=== PATIENT | female | born 1940 | race Caucasian/White ===

== ENCOUNTER 2017-04-08 10:02 | Emergency (ER) | payer MEDICARE, BC ==
[2017-04-08 10:23] VITALS: BP 147/86
--- NOTE | 2017-04-08 15:51 | UC ---
Jackson Terrell Angela, scribed for Carlos Honeycutt MD on 04/08/17 at 1130 . Skin Complaint HPI - HPI Summary HPI Summary: This pt is a 76 y/o female presenting to [facility] c/o swollen left eyelid and rash on forehead and back x2 days. Pt reports the rash is pruritic and has blisters on bilateral hand. Pt notes that she was sitting in the park eating lunch prior to the onset of her symptoms. Pt denies eye discharge, rhinorrhea, new make up, new lotions, new soap. Pt is anticoagulated on Xarelto. - History of Current Complaint Chief Complaint: UCSkin Time Seen by Provider: 04/08/17 11:14 Stated Complaint: RASH Hx Obtained From: Patient Onset/Duration: Sudden Onset Skin Exposure Onset/Duration: Days Ago Location: Other - Swollen left eye, rashe across forehead. Character: Pruritus Aggravating: Nothing Alleviating: Nothing Associated Signs & Symptoms: Positive: Rash. Negative: Nausea, Vomiting, Numbness, Thirst, Diaphoresis, Weakness, Fever, Chills, Cough, Wheezing, Chest Pain, Throat Tightening, Bruising, Tenderness, Red Streaks - Allergy/Home Medications Allergies/Adverse Reactions: Allergies Allergy/AdvReac Type Severity Reaction Status Date / Time ADHESIVE USED ON TEST NODES Allergy ITCHY Uncoded 04/08/17 10:15 MILLICENT AREA DAIRY PRODUCTS Allergy RASPY Uncoded 04/08/17 10:15 VOICE, PHLEGMY, SEASONAL ALLERGY Allergy Sneezing Uncoded 04/08/17 10:15 Review of Systems Constitutional: Negative Skin: Rash Eyes: Other - left eye swelling. ENT: Negative Respiratory: Negative Cardiovascular: Negative Gastrointestinal: Negative Genitourinary: Negative Motor: Negative Neurovascular: Negative Musculoskeletal: Negative Psychological: Negative All Other Systems Reviewed And Are Negative: Yes PMH/Surg Hx/FS Hx/Imm Hx - Surgical History Surgical History: Yes Surgery Procedure, Year, and Place: arthroscopy to bilat knees, hysterectomy, rt oopherectomy, basal cell carcinoma on nose - Family History Known Family History: Positive: None - Social History Alcohol Use: Occasionally Alcohol Amount: GLASS OF WINE "A FEW TIMES A WEEK" Substance Use Type: None Smoking Status (MU): Never Smoked Tobacco Have You Smoked in the Last Year: No - Immunization History Most Recent Tetanus Shot: less then 10 yrs Physical Exam Triage Information Reviewed: Yes Vital Signs: Initial Vital Signs Temp 97.9 F 04/08/17 10:17 Pulse 72 04/08/17 10:17 Resp 16 04/08/17 10:17 BP 147/86 04/08/17 10:17 Pulse Ox 98 04/08/17 10:17 Vital Signs Reviewed: Yes - Additional Comments The patient is well-nourished in no acute distress and in no acute pain. The skin is warm and dry and skin color reflects adequate perfusion. There is a red macular laterally to her left eye and left eyelid, spread across her forehead to the right side. Isolated vesicle on dorsal aspect of hand, most likely consistent with contact dermatitis. HEENT: The head is normocephalic and atraumatic. The pupils are equal and reactive. The conjunctivae are clear and without drainage. There is swelling of left upper eyelid. The right eyelid is not swollen. Nares are patent and without drainage. Neck is supple with full range of motion and non-tender. No cervical adenopathy. Respiratory: Chest is non-tender. Lungs are clear to auscultation and breath sounds are symmetrical and equal. Cardiovascular: Hear is regular rate and rhythm. There is no murmur or rub auscultated. There is no peripheral edema and pulses are symmetrical and equal. Musculoskeletal: There is no back pain noted. Extremities are non-tender with full range of motion. There is good capillary refill. . Neurological: Patient is alert and oriented to person, place and time. The patient has symmetrical motor strength in all four extremities. Psychiatric: The patient has an appropriate affect and does not exhibit any anxiety or depression. Course/Dx - Course Course Of Treatment: Pt will be discharged with prednisone and benadryl. - Differential Diagnoses - Skin Complaint Differential Diagnoses: Contact Dermatitis, Poison Rasheeda - Diagnoses Provider Diagnoses: Contact Dermatitis. Elevated BP Discharge - Discharge Plan Condition: Stable Disposition: HOME Prescriptions: diPHENhydraMINE PO* [Benadryl PO 50 MG CAP*] 50 mg PO Q6H PRN #30 cap PRN Reason: Itching predniSONE TAB* [Deltasone TAB*] 10 mg PO DAILY #41 tab Patient Education Materials: Contact Dermatitis (ED) Referrals: Jose Sanchez MD [Primary Care Provider] - Additional Instructions: Your blood pressure was elevated at this visit. Please follow up with your primary care provider for your blood pressure reading and to assure your symptoms are improving. The documentation as recorded by the Jackson ibrahim Angela accurately reflects the service I personally performed and the decisions made by me, Carlos Honeycutt MD.
== END 2017-04-08 11:39 | disposition home or self-care (01) ==
LOC: UCEAST 10:02
DX: L25.9 Unspecified contact dermatitis, unspecified cause (principal); R03.0 Elevated blood-pressure reading, without diagnosis of hypertension; Z85.828 Personal history of other malignant neoplasm of skin; Z79.01 Long term (current) use of anticoagulants
CPT/HCPCS: 99212; G0463

== ENCOUNTER 2017-09-03 06:02 | Inpatient (IN) | payer MEDICARE, BC ==
--- NOTE | 2017-08-27 20:12 | HP ---
PREOPERATIVE HISTORY AND PHYSICAL: DATE OF ADMISSION/SURGERY: 09/03/17 ATTENDING SURGEON: Abraham Todd MD * (DICTATED BY JENY SEVERINO) PROCEDURE: Left total shoulder replacement. CHIEF COMPLAINT: Left shoulder pain. HISTORY OF PRESENT ILLNESS: Jose is a 77-year-old female who presents to the clinic for left shoulder pain due to a rotator cuff repair. She has failed conservative measures and therefore, agreed to undergo a left total shoulder replacement with Dr. Todd on 09/03/17. PAST MEDICAL HISTORY: Arthritis, peptic ulcer disease, hypothyroidism, paroxysmal AFib, and hyperlipidemia. PAST SURGICAL HISTORY: Left knee surgery x2, hysterectomy, right oophorectomy. MEDICATIONS: 1. Toprol XL 25 mg 1 by mouth daily. 2. Effer-K 20 mEq 1 by mouth daily. 3. Lanoxin 125 mcg 1 by mouth daily. 4. Xarelto 20 mg 1 by mouth daily. 5. B Complex 1 by mouth daily. 6. 600-125 mg 1 by mouth daily. 7. Krill oil 1000 mg every other day. 8. Levothyroxine 88 mcg 1-/12 by mouth daily. 9. Glucosamine and chondroitin 1 by mouth daily. 10. Vitamin D 400 units 1 by mouth daily. ALLERGIES: LEVOCETIRIZINE. FAMILY HISTORY: Positive for father with diabetes. SOCIAL HISTORY: She lives by herself. She is retired. She is right hand dominant. She denies tobacco or alcohol use. REVIEW OF SYSTEMS: A 14-point review of systems was reviewed with the patient. Positive for current complaint, otherwise negative. Denies history of chest pain, shortness of breath, fever, chills, history of bleeding disorder, history of DVT or PE. PHYSICAL EXAMINATION GENERAL: A 77-year-old well-developed, well-nourished female, in no acute distress. Alert and oriented x3. Appropriate mood and affect. VITAL SIGNS: Height 67 inches, weight 148 pounds. Blood pressure 126/70, respiratory rate 20, temperature 98.8. BMI 23.2. HEENT: Normocephalic, atraumatic. PERRLA. Throat clear. NECK: Supple. PULMONARY: Lungs are clear to auscultation bilaterally. No wheezing, rhonchi, or rales. CARDIO: Regular rate and rhythm. S1 and S2. No murmurs, gallops, or rubs. No edema. ABDOMEN: Positive bowel sounds. Soft, nontender. NEUROLOGIC: Alert and oriented x 3. Cranial nerves are grossly intact. Sensation is intact to light touch. MUSCULOSKELETAL: Left upper extremity: Skin is intact. No warmth or erythema. Mild tenderness to palpation over the anterior joint line. Forward flexion to 140, abduction to 140, external rotation to 60, internal rotation to thoracolumbar spine. Weakness to rotator cuff testing. +2 radial pulse. Sensation is intact to light touch distally. STUDIES: MRI and x-rays revealed a full thickness refractory rotator cuff tear of the supraspinatus tendon of the left shoulder. IMPRESSION: Left shoulder rotator cuff tear. PLAN: The patient is scheduled to undergo a left total shoulder replacement with Dr. Todd on 09/03/17. She will return to the office 10 to 14 days postop for followup and suture removal. The patient was instructed per Cardio to stop Xarelto 5 days prior to surgery and it will be restarted after surgery. Percocet will be used for postop pain management. JENY SEVERINO [id number]/[facility] #: [id number] SAMIR
[~2017-09-03 06:02] MED LIST: Buffered Lidocaine 0.9% SYRIN* 5 ML/SYR SYRINGE INTRADERM ONE; Dexamethasone IV* 4 MG/ML 1 ML (4 MG) IV SLOW PU ONE; Famotidine IV* 10 MG/ML 2 ML (20 mg) IV ONE
[2017-09-03] MEDS ORDERED: Famotidine IV* 10 MG/ML 2 ML (20 mg) ONE (06:04)
[2017-09-03] MEDS ORDERED: Dexamethasone IV* 4 MG/ML 1 ML (4 MG) ONE (06:04)
[2017-09-03] MEDS ORDERED: ceFAZolin 2 GM PREMIX (*) 2 GM/50 ML BAG IVPB ONE (06:05)
[2017-09-03] MEDS ORDERED: Buffered Lidocaine 0.9% SYRIN* 5 ML/SYR SYRINGE ONE (06:05)
--- OUTSIDE RECORDS SUMMARY | 2017-09-03 06:09 | XMS REPORT ---
:1940 External Reference #:[id number] Author Organization [facility] Address [address] [address] Phone [phone] Care Team Providers Name Role Phone Jose Sanchez MD Primary Care Physician Unavailable Payers Type Date Identification Numbers Payment Provider Subscriber Medicare Primary Policy Number: [id number] Medicare Leda Yao PayID: [id number] [address] [place] [address] [facility] Part B Policy Number: [id number] [facility] Amari Yao PayID: [id number] [address] [address] [place] [address] Problems Date Description Provider Status Onset: 09/01/2013 Atrial [place] [facility] Schedule Active Onset: 09/01/2013 Palpitations [place] [facility] Schedule Active Onset: 08/31/2013 Hypothyroidism Ismael Orr M.D. Active Onset: 09/23/2013 Atrial fibrillation Ismael Orr M.D. Active Onset: 12/10/2013 Edema JENY Vega Active Onset: 05/23/2017 Full thickness rotator cuff tear Abraham Todd MD Active Onset: 05/23/2017 Injury of shoulder region Abraham Todd MD Active Onset: 12/10/2013 Primary cardiomyopathy JENY Vega Inactive Inactive: 11/15/2014 Family History Date Family Member(s) Problem(s) Comments Father due to () - Abdominal aortic following complications of aneurysm AAA repair. Diabetes : (age 26 Mother due to Kidney post Years) failure Children 4 biological children alive and well Siblings 2 sisters, 3 half 1 . 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 Effer-K 12/20 Active Tablets 20Meq 30tab 1 by mouth Efferv s every day Marina Orr M.D. Lanoxin 12/10 Active Tablets 125mcg 90tab 1 by mouth s every day Marina Orr M.D. Xarelto 12/06 Active Tablets 20mg 90tab 1 by mouth s every day Marina Orr M.D. B Complex 00 Active Tablets qd Unknown /0000 Calcitrate Active Tablets 600mg + D 1 po qd Unknown 600-125MG /0000 Tabs Krill Oil 00 Active Capsules 1000mg every other Unknown /0000 day Levothyroxine 00 Active Tablets 88mcg 90tab 1 1/2 po qd Unknown Sodium /0000 s Glucosamine 00 Active Tablets qd Unknown Chondroitin /0000 Advanced Vitamin D 0000 Active Tablets 400Unit 60tab 1 po qd Unknown /0000 s Toprol XL 02/23 Hx Tablets 25mg 200ta 1 by mouth 427.32 ER 24HR bs twice a day Marina Orr 03/22 Chritsina Aspirin 12/10 Hx Tablets 81mg 1 by mouth every day Ordering - Provider 12/10 Diltiazem HCL ER 12/01 Hx Caps ER 120mg 180ca 1 tab by 427.32 24HR ps mouth a day Marina Orr 02/23 M.D. Metoprolol 09/23 Hx Tablets 25mg 30tab 1/2 po qd Ismael Succinate ER ER 24HR s discontinue F. - on 2.6.14 Kirby, 12/01 M.D. Lanoxin 09/23 Hx Tablets 0.125mg 100ta 1 po qd bs Marina Orr, 12/10 M.D. Aspirin Adult Low 09/23 Hx Tablets [address] Marina Orr, 12/01 M.D. Boswellia Fab 08/31 Hx Powder Ismael [id number]% Marina Orr, 08/31 M.D. Meloxicam 08/31 Hx Tablets 7.5mg 30tab 1 po qd s Marina Orr, 08/31.D. Metoprolol 08/31 Hx Tablets 50mg 60tab 1 po bid Ismael Tartrate s Marina Orr, 08/31.D. Diltiazem CD 08/31 Hx Caps ER 120mg 100ca 1 po qd 427.32 24HR ps Marina Orr, 12/01.D. Metoprolol 08/16 Hx Tablets 50mg 1/2 po qd Ismael Succinate ER 24HR Marina Orr, 09/23.D. Cyclobenzaprine Hx Tablets 10mg 30tab take one at Unknown HCL / s bedtime as - needed 08/31 Desoximetasone Hx Cream .025% 60gm twice daily Unknown /0000 x 2 weeks - 08/31 Estrace Hx Cream 0.1mg/GM 42.50 1 Unknown /0000 0gm application - two times 11/09 Lactase Enzyme Hx Tablets 3000Unit 180ta Unknown /0000 bs - 11/09 Prednisone (Aldo) Hx Tablets 10mg 1tabs take as Unknown /0000 directed - stop as of 11/0905/01/14 Levocetirizine Hx Tablets 5mg Unknown Dihydrochloride /0000 - 05/23 Tramadol HCL Hx Tablets 50mg Unknown /0000 - 05/26 Medications Administered in Office Medication Date Status Form Strength Qnty SIG Indications Ordering Provider Triamcinolone Administered Injection Zaneb (Kenalog) 2016 MD Perez Immunizations CPT Code Status Date Vaccine Lot # [id number] Given 06/29/2010 Influenza Virus 3Yrs & Over [id number] Vital Signs Date Vital Result Comment 08/26/2017 Height 67 inches 5'7" Weight 148.00 lb BP Systolic 126 mmHg BP Diastolic 70 mmHg Respiratory Rate 20 /min Body Temperature 98.8 F Pain Level 0 BMI (Body Mass Index) 23.2 kg/m2 06/20/2017 Height 67 inches 5'7" Weight 148.00 lb BP Systolic 130 mmHg BP Diastolic 70 mmHg Respiratory Rate 20 /min Pain Level 2 BMI (Body Mass Index) 23.2 kg/m2 05/29/2017 Height 67 inches 5'7" Weight 148.00 lb no shoes Heart Rate 60 /min BP Systolic Sitting 130 mmHg Lue reg cuff BP Diastolic Sitting 72 mmHg Lue reg cuff Respiratory Rate 16 /min BMI (Body Mass Index) 23.2 kg/m2 Ejection Fraction 60-65% 11/25/2014-echo 05/23/2017 Height 67 inches 5'7" Weight 148.00 lb Heart Rate 55 /min BP Systolic 132 mmHg BP Diastolic 69 mmHg Respiratory Rate 17 /min Pain Level 8 BMI (Body Mass Index) 23.2 kg/m2 06/11/2016 Height 67 inches 5'7" Weight 142.25 lb w/o shoes Heart Rate 70 /min BP Systolic Sitting 122 mmHg LA reg cuff BP Diastolic Sitting 74 mmHg LA reg cuff BMI (Body Mass Index) 22.3 kg/m2 Ejection Fraction 60% - 65% echo 11/25/14 11/10/2014 Height 67 inches 5'7" Weight 150.25 lb w/shoes Heart Rate 60 /min BP Systolic Sitting 130 mmHg LA reg cuff BP Diastolic Sitting 70 mmHg LA reg cuff Respiratory Rate 12 /min BMI (Body Mass Index) 23.5 kg/m2 04/29/2014 Height 67 inches 5'7" Weight 144.00 lb Heart Rate 64 /min BP Systolic Sitting 114 mmHg BP Diastolic Sitting 56 mmHg Respiratory Rate 14 /min BMI (Body Mass Index) 22.6 kg/m2 02/23/2014 Height 67 inches 5'7" Weight 148.25 lb Heart Rate 68 /min BP Systolic Sitting 124 mmHg BP Diastolic Sitting 60 mmHg Respiratory Rate 16 /min BMI (Body Mass Index) 23.2 kg/m2 01/28/2014 Height 67 inches 5'7" Heart Rate 88 /min BP Systolic Sitting 126 mmHg BP Diastolic Sitting 62 mmHg Respiratory Rate 16 /min 12/10/2013 Height 67 inches 5'7" Weight 151.00 lb Heart Rate 72 /min BP Systolic Sitting 134 mmHg LA Reg cuff BP Diastolic Sitting 64 mmHg LA Reg cuff BP Systolic Standing 136 mmHg BP Diastolic Standing 68 mmHg Respiratory Rate 14 /min BMI (Body Mass Index) 23.6 kg/m2 09/23/2013 Height 67 inches 5'7" Weight 154.00 lb Heart Rate 68 /min BP Systolic Sitting 136 mmHg BP Diastolic Sitting 64 mmHg BMI (Body Mass Index) 24.1 kg/m2 08/31/2013 Height 67 inches 5'7" Weight 149.00 lb Heart Rate 68 /min BP Systolic Sitting 140 mmHg la, ra 136/80 BP Diastolic Sitting 80 mmHg la, ra 136/80 BP Systolic Standing 144 mmHg BP Diastolic Standing 84 mmHg BMI (Body Mass Index) 23.3 kg/m2 Results Test Date Test Result H/L Range Note Comp Metabolic Panel 12/02/2013 Sodium 140 mmol/L 133-145 Potassium 4.0 mmol/L 3.7-5.6 Chloride 103 mmol/L 101-111 Co2 Carbon Dioxide 32 mmol/L 22-32 Anion Gap 5 mmol/L 2-11 Glucose 118 mg/dL High 70-100 Blood Urea Nitrogen 19 mg/dL 6-24 Creatinine 1.01 mg/dL High 0.51-0.95 BUN/Creatinine Ratio 18.8 8-20 Calcium 9.6 mg/dL 8.6-10.3 Total Protein 6.8 g/dL 6.4-8.9 Albumin 4.4 g/dL 3.2-5.2 Globulin 2.4 g/dL 2-4 Albumin/Globulin Ratio 1.8 1-3 Total Bilirubin 0.50 mg/dL 0.2-1.0 Alkaline Phosphatase 116 U/L High 34-104 Alt 17 U/L 7-52 Ast 16 U/L 13-39 Egfr Non- 53.4 >60 Egfr 68.7 >60 1 CBC Auto Diff 12/02/2013 White Blood Count 7.0 10^3/uL 4.8-10.8 Red Blood Count 4.46 10^6/uL 4.0-5.4 Hemoglobin 14.3 g/dL 12.0-16.0 Hematocrit 42 % 35-47 Mean Corpuscular Volume 93 fL 80-97 Mean Corpuscular Hemoglobin 32 pg High 27-31 Mean Corpuscular HGB Conc 34 g/dL 31-36 Red Cell Distribution Width 13 % 10.5-15 Platelet Count 257 10^3/uL 150-450 Mean Platelet Volume 10 um3 7.4-10.4 Abs Neutrophils 4.2 10^3/uL 1.5-7.7 Abs Lymphocytes 2.0 10^3/uL 1.0-4.8 Abs Monocytes 0.5 10^3/uL 0-0.8 Abs Eosinophils 0.2 10^3/uL 0-0.6 Abs Basophils 0.1 10^3/uL 0-0.2 Abs Nucleated RBC 0 10^3/uL Granulocyte % 59.8 % 38-83 Lymphocyte % 28.3 % 25-47 Monocyte % 7.6 % 1-9 Eosinophil % 3.1 % 0-6 Basophil % 1.2 % 0-2 Nucleated Red Blood Cells % 0.1 Laboratory test finding 12/02/2013 TSH (Thyroid Stimulating 1.43 IU/mL 0.34-5.60 Horm) B Type Natriuretic Peptide 63 pg/mL 2 Order 12/01/2013 Stress Test, Pharmacologic Nuclear (Lexiscan) <pending& gt; 1 Because ethnic data is not always readily available, this report includes an eGFR for both -Americans and non- Americans. The National Kidney Disease Education Program (NKDEP) does not endorse the use of the MDRD equation for patients that are not between the ages of 18 and 70, are , have extremes of body size, muscle mass, or nutritional status, or are non- or non-. According to the National Kidney Foundation, irrespective of diagnosis, the stage of the disease is based on the level of kidney function: Stage Description GFR(mL/min/1.73 m(2)) 1 Kidney damage with normal or decreased GFR 90 2 Kidney damage with mild decrease in GFR 60-89 3 Moderate decrease in GFR 30-59 4 Severe decrease in GFR 15-29 5 Kidney failure <15 (or dialysis) 2 >100 to <200 pg/mL: likely compensated congestive heart failure (CHF) 200 to 400 pg/mL: likely moderate CHF >400 pg/mL: likely moderate to severe CHF [facility] Procedures Date CPT Code Description Status 05/29/2017 36801 EKG Tracing & Interpretation Completed 05/23/2017 50901 Inject/Drain Joint/Bursa Major Completed 06/11/2016 56940 EKG Tracing & Interpretation Completed 12/12/2014 94408 Holter Monitor Review (24 hr)dr wylie & giovani Completed only 12/12/2014 22732 ECG Monitor/Recording W/Visual Superimposition Scanning Completed 12/07/2014 26852 Holter Monitor Review (24 hr)dr wylie & giovani Completed only 12/07/2014 73905 ECG Monitor/Recording W/Visual Superimposition Scanning Completed 11/25/2014 52964 ECHO Transthoracic, Real-Time 2D With Doppler And Color Completed Flow 11/10/2014 01726 EKG Tracing & Interpretation Completed 03/14/2014 82250 Holter Monitoring 24 HR New Completed 01/28/2014 00865 EKG Tracing & Interpretation Completed 12/01/2013 08829 Treadmill Interp/Report Only Completed 12/01/2013 94408 Stress Test Supervsn W/Out I/R Completed 09/29/2013 90419 ECHO Stress Test Incl Perf Contiuous ekg Monitoring Completed W/Phys Superv 09/29/2013 88861 ECHO Stress Test Incl Perf Contiuous ekg Monitoring Completed W/Phys Superv 09/23/2013 64059 EKG Tracing & Interpretation Completed 09/01/2013 32009 ECHO Transthoracic, Real-Time 2D With Doppler And Color Completed Flow 08/31/2013 62137 EKG Tracing & Interpretation Completed 09/17/2010 24326 Rad Shoulder Comp, Min. 2 Views Completed Encounters Type Date Location Provider CPT E/M Dx Office Visit 06/20/2017 1:15p [facility] [place] [address] M75.122 C.M.A. S46.102A Office Visit 05/29/2017 10:30a [facility] Ismael Orr, 95698 I48.0 [facility] M.DJessy R00.2 R94.31 Office Visit 05/23/2017 9:00a [facility] [place] [address] M75.122 C.M.A. S46.102A Office Visit 06/11/2016 9:00a [facility] Ismael Orr M.D. 85955 I48.0 R00.2 Office Visit 11/10/2014 9:00a [facility] Ismael Orr 51948 427.31 M.D. 785.1 425.9 Office Visit 04/29/2014 8:40a [facility] Ismael Orr M.D. 90871 785.1 427.31 Office Visit 02/23/2014 8:40a [facility] Ismael Orr M.D. 79833 401.9 427.31 782.3 785.1 Office Visit 01/28/2014 8:40a [facility] Ismael Orr 43347 427.31 M.D. 782.3 785.1 Office Visit 12/10/2013 2:30p [facility] JENY Vega 16580 425.4 427.31 782.3 Office Visit 09/29/2013 1:30p [facility] Ismael Orr, 02220 427.32 M.D. 785.1 425.9 Office Visit 09/23/2013 12:40p [facility] Ismael Orr M.D. 61761 785.1 425.9 244.9 427.31 Office Visit 08/31/2013 10:30a [facility] Ismael Orr 44168 427.32 M.D. 785.1 244.9 Office Visit 09/17/2010 10:15a [facility] M.D. 37554 847.0 C.M.A. Plan of Care Future Appointment(s):09/16/2017 1:15 pm - Abraham Todd MD at [facility]M.AJessy09/03/2017 7:30 am - Shireen Townsend PA-C at [facility].09/03/2017 7:30 am - Abraham Todd MD at [facility].08/26/2017 - Abraham Todd, MDM75.122 Complete rotatr-cuff tear/ruptr of left shoulder, not traumaFollow up:Follow up: 10-14 days post opS46.102D Unsp injury of musc/fasc/tend long hd bicep, left arm, subs
[2017-09-03] MEDS ORDERED: Ondansetron INJ* 2 MG/ML VIAL ONE (07:04)
[2017-09-03] MEDS ORDERED: Phenylephrine INJ* 10 MG/ML 1 ML VIAL (10 MG) ONE (07:04)
[2017-09-03] MEDS ORDERED: ROPIVACAINE 5 MG/ML 30 ML BTL (0.5%) ONE (07:04)
[2017-09-03] MEDS ORDERED: Propofol* 10 MG/ML 20 ML BTL IV PUSH ONE (07:04)
[2017-09-03] MEDS ORDERED: fentaNYL* 50 MCG/ML 2 ML VIAL (100 MCG VIAL) ONE (07:07)
[2017-09-03] MEDS ORDERED: Midazolam* 1 MG/ML 10 ML VIAL (10 MG) ONE (07:07)
[2017-09-03] MEDS ORDERED: Atracurium* 10 MG/ML 10 ML VIAL ONE (07:07)
[2017-09-03] MEDS ORDERED: Ondansetron INJ* 2 MG/ML VIAL IV PRN ×2 (08:17→10:17)
[2017-09-03] MEDS ORDERED: DiMENhydriNATE IV* 50 MG/ML VIAL IV PUSH PRN (08:17)
[2017-09-03] MEDS ORDERED: Naloxone* 0.4 MG/ML 1 ML VIAL IV PRN (08:17)
[2017-09-03] MEDS ORDERED: oxyCODONE/Acetamin 5/325 MG* TAB PO PRN ×2 (08:17→10:17)
[2017-09-03] MEDS ORDERED: fentaNYL* 50 MCG/ML 2 ML VIAL (100 MCG VIAL) IV PRN (08:17)
[2017-09-03] MEDS ORDERED: Acetaminophen TAB* 325 MG PO PRN (10:17)
[2017-09-03] MEDS ORDERED: oxyCODONE TAB* 5 MG TAB PO PRN (10:17)
[2017-09-03] MEDS ORDERED: Ondansetron TAB* 4 MG PO PRN (10:17)
[2017-09-03] MEDS ORDERED: Polyethylene Glycol 3350* 17 GM PACKET PO PRN (10:17)
[2017-09-03] MEDS ORDERED: Temazepam CAP* 15 MG PO PRN (10:17)
[2017-09-03] MEDS ORDERED: Morphine INJ* 2 MG/ML 1 ML CARPUJECT IV PRN (10:17)
[2017-09-03] MEDS ORDERED: diPHENhydraMINE IV* 50 MG/ML 1 ml VIAL (BENADRYL) IV PRN (10:17)
[2017-09-03] MEDS ORDERED: diPHENhydraMINE PO* 25 MG PO PRN (10:17)
[2017-09-03] MEDS ORDERED: Bisacodyl SUPP* 10 MG SUPP PR PRN (10:17)
[2017-09-03] MEDS ORDERED: Docusate CAP* 100 MG PO PRN (10:17)
[2017-09-03] MEDS ORDERED: Magnesium Hydroxide LIQ* 30 ML UDC PO PRN (10:17)
[2017-09-03] MEDS ORDERED: Metoprolol Tartrate IV* 1 MG/ML 5 ML VIAL ONE (10:24)
[2017-09-03] MEDS ORDERED: Metoprolol Tartrate IV* 1 MG/ML 5 ML VIAL IV PRN (10:25)
[2017-09-03] MEDS ORDERED: ceFAZolin 1 GM VIAL(*) 1 GM in NS 0.9% 50 ML* 50 ML IVPB SCH (11:00)
--- NOTE | 2017-09-03 11:52 | RAD ---
Indication: Postop LEFT glenohumeral joint replacement. Comparison: May 15, 2017 MRI. May 08, 2017 radiographs. Technique: Internal and external rotation AP and axillary views LEFT shoulder REPORT AND IMPRESSION: Reversed glenohumeral joint prosthesis in place. Negative for periprosthetic fracture. Surgical drain in place. Overlying soft tissue swelling and subcutaneous emphysema. Unremarkable appearance in the immediate postoperative setting.
[2017-09-03 12:46] LABS: ABS Basophils 0 10^3/ul (0-0.2); ABS Eosinophils 0 10^3/ul (0-0.6); ABS Lymphocytes 0.5 10^3/ul (1.0-4.8); ABS Monocytes 0.2 10^3/ul (0-0.8); ABS Neutrophils 15.9 10^3/ul (1.5-7.7); ABS Nucleated RBC 0 10^3/ul; Eosinophil % 0 % (0-6); Hematocrit 38 % (35-47); Hemoglobin 12.7 g/dl (12.0-16.0); Lymphocyte % 2.9 % (25-47); Mean Corpuscular HGB Conc 34 g/dl (31-36); Mean Corpuscular Hemoglobin 32 pg (27-31); Mean Corpuscular Volume 95 fL (80-97); Mean Platelet Volume 8 um3 (7.4-10.4); Nucleated Red Blood Cells % 0; Platelet Count 249 10^3/ul (150-450); Red Blood Count 4.01 10^6/ul (4.0-5.4); Red Cell Distribution Width 13 % (10.5-15); White Blood Count 16.5 10^3/ul (3.5-10.8)
--- NOTE | 2017-09-03 12:46 | CONSULT ---
Subjective Date of Service: 09/03/17 Interval History: Patient admitted today for L shoulder surgery. She states she took her meds this AM. No pain at present. Since starting on BB some years ago, her palpitations are very mild and infrequent. No dizziness, chest pain, or SOB with her PAF. Allergies Allergy/AdvReac Type Severity Reaction Status Date / Time ADHESIVE USED ON TEST NODES Allergy ITCHY Uncoded 09/03/17 06:18 MILLICENT AREA DAIRY PRODUCTS Allergy RASPY Uncoded 09/03/17 06:18 VOICE, PHLEGMY, SEASONAL ALLERGY Allergy Sneezing Uncoded 09/03/17 06:18 Home Medications Medication Instructions Recorded Confirmed Type Digoxin TAB* [Lanoxin TAB*] 0.125 mg PO QAM 12/01/13 09/03/17 History Glucosamine Chondroitin A 1 tab PO QAM 12/01/13 09/03/17 History Levothyroxine TAB* [Synthroid 88 1.5 tab PO QAM 12/01/13 09/03/17 History MCG TAB*] Metoprolol Succinate [Metoprolol 25 mg PO QAM 04/23/14 09/03/17 History Succinate ER] Rivaroxaban [Xarelto] 20 mg PO QPM 04/23/14 09/03/17 History Calcium Lactate 1 tab PO DAILY 08/26/17 09/03/17 History Congaplex 1 tab PO QAM 08/26/17 09/03/17 History Potassium 1 tab PO QAM 08/26/17 09/03/17 History Family History: Findings - Father had DM Social History: Findings - Lives with her who is her SDM. No alcohol abuse or tobacco use. Past Medical History: Findings - Hysterectomy, R oophorectomy, L knee sx x 2 Review of Systems - Measurements Intake and Output: Intake and Output Last 24 Hours 09/01/17 09/02/17 09/03/17 09/04/17 06:59 06:59 06:59 06:59 Intake Total 3300 Balance 3300 Weight 148 lb Intake: IV Fluids 3300 LR 3300 - Review of Systems Constitutional Symptoms: Negative: Weight Gain, Weight Loss, Weakness, Fatigue, Fever, Night Sweats, Unexplained Falls, Other Dermatology: Positive: Normal HEENT: Positive: Normal Eyes: Positive: Normal Thyroid: Positive: Normal Pulmonary: Positive: Normal Cardiology: Positive: Palpitations Gastroenterology: Positive: Normal Genital - Urinary: Positive: Normal Musculoskeletal: Negative: Joint Pain, Joint Stiffness, Arthritis, Osteoporosis, Low Back Pain , Sciatica, Joint Deformities, Kyphoscoliosis, Other Endocrinology: Positive: Normal Hematologic/Lymphatic: Negative: Anemia, Easy Brusing, Hx Leukemia, Hx Lymphoma, Use of Anticoagulant, Use of Antiplatelet Drugs, Other Neurology: Positive: Normal Psychiatry: Positive: Normal Allergic/Immunologic: Negative: Hx Anaphylaxis, Hx Angioedema, Hx Environmental, Hx Seasonal, Athsma, Hx HIV, Immunocompromise, Swollen Glands LymphNodes, Other Objective Active Medications: Acetaminophen (Tylenol Tab*) 650 mg PO Q4H PRN PRN Reason: PAIN OR TEMPERATURE Bisacodyl (Dulcolax Supp*) 10 mg ND DAILY PRN PRN Reason: constipation Dexamethasone Sodium Phosphate (Decadron Iv*) 8 mg IV SLOW PU ONCE ONE Stop: 09/03/17 06:01 Last Admin: 09/03/17 06:22 Dose: 8 mg Digoxin (Lanoxin Tab*) 0.125 mg PO QAM [facility] Dimenhydrinate (Dramamine Iv*) 25 mg IV PUSH ONCE PRN PRN Reason: NAUSEA/VOMITING Diphenhydramine HCl (Benadryl Iv*) 25 mg IV Q6H PRN PRN Reason: itching Diphenhydramine HCl (Benadryl Po*) 25 mg PO Q6H PRN PRN Reason: itching or sleep Docusate Sodium (Colace Cap*) 100 mg PO BID PRN PRN Reason: CONSTIPATION Enoxaparin Sodium (Lovenox(*)) 30 mg SUBCUT Q24H [facility] Famotidine (Pepcid Iv*) 20 mg IV ONCE ONE Stop: 09/03/17 06:01 Last Admin: 09/03/17 06:22 Dose: 20 mg Fentanyl Citrate (Fentanyl*) 50 mcg IV Q5M PRN PRN Reason: PAIN - MODERATE Lactated Ringer's (Lactated Ringers 1000 Ml Bag*) 1,000 mls @ 125 mls/hr IV PER RATE [facility] Last Admin: 09/03/17 06:21 Dose: 125 mls/hr Cefazolin Sodium 1 gm/ Sodium (Chloride) 50 mls @ 200 mls/hr IVPB Q8H [facility] Stop: 09/04/17 03:14 Lactated Ringer's (Lactated Ringers 1000 Ml Bag*) 1,000 mls @ 100 mls/hr IV PER RATE [facility] Lactulose (Lactulose*) 30 ml PO Q6H PRN PRN Reason: constipation Levothyroxine Sodium (Synthroid Tab*) 132 mcg PO QAM [facility] Lidocaine/Sodium Bicarbonate (Buffered Lidocaine 0.9% Syrin*) 0.2 ml INTRADERM ONCE ONE Stop: 09/02/17 09:11 Last Admin: 09/03/17 06:22 Dose: 0.2 ml Magnesium Hydroxide (Milk Of Magnesia Liq*) 30 ml PO Q6H PRN PRN Reason: constipation Metoprolol Succinate (Toprol Xl Tab*) 25 mg PO QAM [facility] Metoprolol Tartrate (Lopressor Iv*) 1 mg IV Q5M PRN PRN Reason: BLOOD PRESSURE Morphine Sulfate (Morphine Inj (Syringe)*) 2 mg IV Q2H PRN PRN Reason: PAIN - BREAKTHROUGH Naloxone HCl (Narcan*) 0.08 mg IV Q2M PRN PRN Reason: severe induced resp depression Stop: 09/04/17 08:16 Non-Formulary Medication (Potassium) 1 tab PO QAM [facility] Ondansetron HCl (Zofran Inj*) 4 mg IV ONCE PRN PRN Reason: NAUSEA/VOMITING Ondansetron HCl (Zofran Inj*) 4 mg IV Q6H PRN PRN Reason: nausea Ondansetron HCl (Zofran Tab*) 4 mg PO Q6H PRN PRN Reason: NAUSEA Oxycodone HCl (Roxycodone Tab*) 10 mg PO Q4H PRN PRN Reason: PAIN Oxycodone/Acetaminophen (Percocet 5/325 Tab*) 1 tab PO ONCE PRN PRN Reason: PAIN - MODERATE Oxycodone/Acetaminophen (Percocet 5/325 Tab*) 2 tab PO Q4H PRN PRN Reason: PAIN Oxycodone/Acetaminophen (Percocet 5/325 Tab*) 1 tab PO Q4H PRN PRN Reason: PAIN Polyethylene Glycol/Electrolytes (Miralax*) 17 gm PO DAILY PRN PRN Reason: Constipation Rivaroxaban (Xarelto(*)) 20 mg PO QPM [facility] Temazepam (Restoril Cap*) 15 mg PO BEDTIME PRN PRN Reason: INSOMNIA Vital Signs - 8 hr 09/03/17 09/03/17 09/03/17 06:41 10:20 10:25 Temperature 97.9 F 97.0 F Pulse Rate 82 71 80 Respiratory 16 16 14 Rate Blood Pressure 152/74 125/58 126/81 (mmHg) O2 Sat by Pulse 98 98 98 Oximetry 09/03/17 09/03/17 09/03/17 10:30 10:34 10:45 Temperature Pulse Rate 65 62 Respiratory 16 12 Rate Blood Pressure 121/66 121/55 (mmHg) O2 Sat by Pulse 98 98 98 Oximetry 09/03/17 09/03/17 09/03/17 11:00 11:15 11:30 Temperature Pulse Rate 62 67 76 Respiratory 12 16 14 Rate Blood Pressure 117/55 120/79 122/57 (mmHg) O2 Sat by Pulse 98 98 97 Oximetry 09/03/17 09/03/17 11:45 12:00 Temperature Pulse Rate 70 67 Respiratory 16 12 Rate Blood Pressure 113/83 139/52 (mmHg) O2 Sat by Pulse 98 100 Oximetry Oxygen Devices in Use Now: Nasal Cannula Appearance: Alert, supine on PACU stretcher. In good spirits. Looks comfortable. L arm in bulky restraining device. Eyes: No Scleral Icterus Ears/Nose/Mouth/Throat: Clear Oropharnyx, Mucous Membranes Moist Neck: NL Appearance and Movements; NL JVP, No Thyroid Enlargement, Masses Respiratory: Symmetrical Chest Expansion and Respiratory Effort, Clear to Auscultation, Clear to Percussion Cardiovascular: NL Sounds; No Murmurs; No JVD, No Edema, - - trigeminal rhythm Extremities: No Edema, No Clubbing, Cyanosis, - Skin: No Rash or Ulcers, No Nodules or Sclerosis, - Neurological: Alert and Oriented x 3, NL Sensation Assessment/Plan - Billing Plan By Medical Problem: 1. Atrial fibrillation: Her episodes are brief and do not affect her function at all. Appropriate for [facility]U with tele. Dig level pending. Rivaroxaban scheduled to to re-started 09/04/17 6 PM. Continue metoprolol XL 2. Hypothyroidism. Continue levothyroxine. TSH pending.
[2017-09-03 13:00] LABS: EGFR Non-African American 58.2 (>60)
[2017-09-03] MEDS: ceFAZolin 1 GM VIAL(*) 1 GM in NS 0.9% 50 ML* 50 ML IVPB SCH ×2 (16:17→23:48)
[2017-09-03] MEDS: oxyCODONE/Acetamin 5/325 MG* TAB PO PRN (23:46)
[2017-09-04] MEDS: oxyCODONE/Acetamin 5/325 MG* TAB PO PRN ×2 (03:51→11:56)
[2017-09-04] MEDS ORDERED: Levothyroxine TAB* 88 MCG TAB PO SCH (06:00)
[2017-09-04 07:31] LABS: Hematocrit 29 % (35-47); Mean Platelet Volume 9 um3 (7.4-10.4); Platelet Count 199 10^3/ul (150-450)
[2017-09-04 07:45] LABS: EGFR Non-African American 63.7 (>60)
[2017-09-04] MEDS: ceFAZolin 1 GM VIAL(*) 1 GM in NS 0.9% 50 ML* 50 ML IVPB SCH (07:57)
[2017-09-04 08:06] VITALS: BP 114/49
--- NOTE | 2017-09-04 08:43 | PN ---
Progress Note - Progress Note Date of Service: 09/04/17 SOAP: Subjective: PT seen and examined this AM. Feeling better with pain control now. No numbness and tingling. No SOB, CP Objective: Temp Pulse Resp BP Pulse Ox 97.5 F 68 16 114/49 97 09/04/17 07:20 09/04/17 07:57 09/04/17 08:00 09/04/17 07:20 09/04/17 07:20 NAD. dressing and sling in place. SILT grossly distally,2+ radial pulse. able to flex/ext wrist Laboratory Results - last 24 hr 09/03/17 09/03/17 09/04/17 12:35 12:35 07:08 WBC 16.5 H RBC 4.01 Hgb 12.7 10.0 L Hct 38 29 L MCV 95 MCH 32 H MCHC 34 RDW 13 Plt Count 249 199 MPV 8 9 Neut % (Auto) 95.9 H Lymph % (Auto) 2.9 L [place] % (Auto) 1.1 Eos % (Auto) 0 Baso % (Auto) 0.1 Absolute Neuts (auto) 15.9 H Absolute Lymphs (auto) 0.5 L Absolute Monos (auto) 0.2 Absolute Eos (auto) 0 Absolute Basos (auto) 0 Absolute Nucleated RBC 0 Nucleated RBC % 0 Sodium 139 Potassium 4.3 Chloride 106 Carbon Dioxide 31 Anion Gap 2 BUN 15 Creatinine 0.93 Est GFR ( Amer) 74.8 Est GFR (Non-Af Amer) 58.2 BUN/Creatinine Ratio 16.1 Glucose 171 H Calcium 9.1 Magnesium 1.9 TSH 0.82 Digoxin 0.6 L 09/04/17 07:08 WBC RBC Hgb Hct MCV MCH MCHC RDW Plt Count MPV Neut % (Auto) Lymph % (Auto) [place] % (Auto) Eos % (Auto) Baso % (Auto) Absolute Neuts (auto) Absolute Lymphs (auto) Absolute Monos (auto) Absolute Eos (auto) Absolute Basos (auto) Absolute Nucleated RBC Nucleated RBC % Sodium 138 Potassium 4.0 Chloride 106 Carbon Dioxide 28 Anion Gap 4 BUN 14 Creatinine 0.86 Est GFR ( Amer) 81.9 Est GFR (Non-Af Amer) 63.7 BUN/Creatinine Ratio 16.3 Glucose 138 H Calcium 8.8 Magnesium TSH Digoxin Assessment: POD#1 from L reverse Plan: doing well drain to be d/c'd today potential d/c today if stable
[2017-09-04] MEDS ORDERED: POTASSIUM PO SCH (09:00)
[2017-09-04] MEDS ORDERED: Digoxin TAB* 0.125 MG PO SCH (09:00)
[2017-09-04] MEDS ORDERED: Metoprolol Succinate XL TAB* 25 MG PO SCH (09:00)
--- NOTE | 2017-09-04 09:49 | OP ---
CC: PCP OPERATIVE REPORT: DATE OF OPERATION: 09/03/17 DATE OF : 36 SURGEON: Abraham Todd MD ASSISTANTS: 1. JENY Lowry 2. Akiko Canales. surgical specialist 3. Joshua Qureshi, MS III. PRE-OP DIAGNOSIS: Left shoulder rotator cuff arthropathy. POST-OP DIAGNOSIS: Left shoulder rotator cuff arthropathy. OPERATIVE PROCEDURE: Left shoulder reverse shoulder arthroplasty and open biceps tenodesis. COMPLICATIONS: None. ESTIMATED BLOOD LOSS: Minimal. IMPLANTS USED: Aequalis-Reversed II Centered glenosphere 36 mm, Reversed II threaded baseplate 25 x 30 mm. There was Flex Shoulder System Reversed tray that centered, Aequalis Ascend Flex humeral stem 3B and the reversed insert +6. INDICATIONS: Leda Yao is a 77-year-old female who sustained a rotator cuff tear several months ago. She has failed conservative management. She had persistent pain and weakness and elected to proceed with left shoulder reverse arthroplasty. Risks and benefits of surgery were discussed at length and included, but not limited to bleeding, infection, damage to nerves, vessels, surrounding structures, wound nonhealing, persistent pain, need for surgery, scarring, stiffness, incomplete relief of symptoms, risks of anesthesia, fracture, dislocation, need for further surgery, risk of DVT, risk of anesthesia. She has elected to proceed. DESCRIPTION OF PROCEDURE: The patient was greeted in the preoperative area by the attending surgeon. The correct extremity was marked and the consent was confirmed. She underwent interscalene block by the anesthesiologist after which she was brought back to the operating suite where she was placed in the supine position on the operating table. She then underwent general anesthesia with endotracheal intubation after which she was placed [facility] position. All bony prominences were padded. The left shoulder was then prepped and draped in the usual sterile fashion beginning with chlorhexidine soap, scrub, and alcohol wipe and a final prep with ChloraPrep. After appropriate surgical pause indicating site, side, procedure, administration of antibiotics, the deltopectoral incision was made sharply in line using the coracoid as landmark. The soft tissues were carefully dissected to expose the cephalic vein, which was carefully dissected and taken laterally with the deltoid. The deltopectoral groove was identified and the soft tissues were carefully exposed. The clavipectoral fascia was identified and excised. The pec tendon insertion was identified and the first 1.5 cm of pec was released. Biceps was exposed below that and this was then tenodesed using a heavy nonabsorbable suture to perform biceps tenodesis. It was tenotomized proximal to that and the dissection was carried proximally. The 3 sisters were identified and then suture ligated. Adhesions under the deltoid have been carefully removed as well as the fascia that was surrounding the short head of the biceps. The soft tissues were carefully mobilized. The Kolbel was placed for retraction and the subscap was then carefully taken down in a peeled fashion , encompassing the capsule in the anterior aspect of the shoulder to expose the neck as well as to expose the head. This was then tagged with a #5 Ethibond suture for later repair. Once this was released, the head was then gently dislocated to expose, there were areas of grade 0 to 1 changes and there were small areas of grade 3 changes to the humeral head. There is evidence of a full -thickness rotator cuff tear anteriorly based. The subscapularis had evidence of high-grade tearing, the proximal third was torn and the quality of the tendon was not very good. The head was gently dislocated. The CA ligament was released. A provisional cut was then made using the oscillating saw. The humeral head was then prepared in usual fashion using a canal finder and then, the sizing guides and finally the stems. The size 3 stem found to have appropriate press fit. The protection plate was then placed and attention was directed to the glenoid. The appropriate retractors were placed. The superior, middle, and inferior glenohumeral ligaments were then carefully released to protect neurovascular bundle. This allowed for mobilization of the subscap. The glenoid neck retractor was then placed anteriorly and the glenoid neck was exposed. The electrocautery device was then used to release the anterior labrum as well as the superior labrum and biceps. The inferior labrum was then carefully released with tension on sutures as well as from the capsule, using a Sood elevator to prevent the neurovascular bundle. Once the release of the labrum was complete, the Sood was then used to remove any of the remaining cartilage on the glenoid surface. Once this was removed, the center guide pin was then placed inferiorly in the center of the glenoid. The glenoid was appeared to be very small. The base was then reamed using the 25-mm reamer. Then, the footprint reamer was done with hand to remove any edges to allow for good seating of the glenoid component. The 8-mm drill was then used to drill the center peg and then the 6.5-mm drill was then used to drill bicortically to depth of about 30 to 35 mm. This was then measured. This was drilled to a depth of 30 mm, it was tapped to about 30 mm and then the final implant was brought to the field and secured in position with good purchase. The 3 interlocking screws were then placed superior, inferior as well as anteriorly. These were secured. The glenosphere was then brought to the field and secured and the set screw was secured as well. The traction was removed and attention was directed to the humerus. The stem was checked and was found to have a good fit and then a center baseplate was placed back on and then the provisional reduction was done. Attention was directed to the humerus. The size 3 again had a good fit. The center baseplate and the +6 liner were then placed and then reduced. The shoulder was taken through range of motion and found to forward flex to about 145, abduct to about 100, and externally rotate to about 55. This was quite close to her baseline. The final implants were chosen and the transosseous tunnels of the humerus were then drilled and placed with #5 Ethibond sutures for the later subscap repair. The final implants were chosen and the final implants were prepared on back table by the attending surgeon. They were impacted in position. The shoulder was then reduced again and had the same range of motion as the trial. The wounds were copiously irrigated with sterile saline. The subscap was closed using the previously placed sutures in a horizontal mattress configuration. An intraarticular drain was then placed. Then, the wounds were irrigated again. A #2 Ethibond suture was used to close the deltopectoral fascia and the wounds were irrigated again. The skin was closed in layers with 2-0 Vicryl in interrupted fashion and 3-0 Monocryl. Sterile dressings were applied as well as an UltraSling and a Cryo/Cuff. She was awoken from anesthesia and transferred to PACU in stable condition. POSTOPERATIVE PLAN: She will be nonweightbearing. She will have no active range of motion of the shoulder, only passive forward flexion, abduction to 90, external rotation to 40 as tolerated. She is able to flex and extend her elbow , wrist, and hand. The drain will be discontinued on postop day 1. She will receive 24 hours of postoperative antibiotics. DVT prophylaxis will be heparin or Lovenox while in- house and then she will be discharged without due to no previous personal or family history. We will follow her in the hospital and she will potentially be discharged on postop day 1. I will see her in the office in 10 to 14 days postop. [id number]/[facility] #: [id number] SAMIR
[2017-09-04] MEDS ORDERED: Enoxaparin(*) 30 MG/0.3 ML SYR SUBCUT SCH (12:00)
--- NOTE | 2017-09-04 17:56 | PN ---
Progress Note - Progress Note Date of Service: 09/04/17 Note: Drain was pulled with tip intact, tolerated well by patient
[2017-09-04] MEDS ORDERED: Rivaroxaban TAB(*) 20 MG TAB PO SCH (18:00)
--- NOTE | 2017-09-06 13:30 | DS ---
DISCHARGE SUMMARY: DATE OF ADMISSION: 09/03/17 DATE OF DISCHARGE: 09/04/17 DATE OF SURGERY: 09/03/17 SURGEON: Dr. Abraham Todd * (DICTATED BY JENY CAMP) ASSISTANTS: JENY Lowry; "Akiko Canales." FAX MACHINE OPERATOR: "Joshua Qureshi," MS III. PRE-OP DIAGNOSIS: Left shoulder rotator cuff arthropathy. OPERATIVE PROCEDURE: Left shoulder reverse shoulder arthroplasty and open biceps tenodesis. HISTORY: Ms. Yao is a 77-year-old female who sustained a rotator cuff tear several months ago. She has failed conservative management. She has had persistent pain and weakness and elected to proceed with a left shoulder reverse arthroplasty. HOSPITAL COURSE: On 09/03/17, Ms. Yao underwent a left total reverse shoulder arthroplasty and open biceps tenodesis with Dr. Todd, which is uncomplicated. She recovered briefly in the PACU and then was transferred to the short stay surgical unit in stable condition. She was seen by the hospitalist service during her stay for history of atrial fibrillation and hypothyroidism. On postop day 1, patient was seen and examined both by JENY Randall and Dr. Abraham Todd. Patient was in no acute distress. Sensation was intact to light touch distally. 2+ radial pulse, able to flex and extend the wrist. Her drain was pulled with the tip intact, which was tolerated well by the patient. Hemoglobin was 10.0, hematocrit was 29. Patient was deemed to be medically and orthopedically stable for discharge. MEDICATIONS AT DISCHARGE: 1. Levothyroxine 88 mcg tab, take 1.5 tabs p.o. q.a.m.. 2. Glucosamine chondroitin 1 tab p.o. q.a.m. 3. Digoxin 0.125 mg p.o. q.a.m. 4. Xarelto 20 mg p.o. q.p.m. 5. Metoprolol succinate 25 mg p.o. q.a.m. 6. Calcium lactate 1 tab p.o. daily. 7. Potassium 1 tab p.o. q.a.m. 8. Congaplex 1 tab p.o. q.a.m. 9. Acetaminophen tab 650 mg p.o. q.4 hours p.r.n., max daily dose of 4000. 10. Docusate 100 mg p.o. b.i.d. p.r.n. 11. Percocet 5/325 one to two tabs p.o. q.4 hours p.r.n., max daily dose of 8. DISCHARGE PLAN: Passive range of motion only. No forward flexion past 90 degrees. No external rotation past 25 degrees. Wound care, okay to shower after 09/06/17, but no submerging wound. Call the orthopedic office with increased drainage, redness, increased pain or fever. Go to the emergency room with shortness of breath or chest pain. Regular diet, may use a stool softener to prevent constipation. Call office if no bowel motion within 48 hours. Pain control. Percocet 5/325 one to two tabs by mouth every 4 to 6 hours, max of 8 per day. JENY CAMP [id number]/[facility] #: [id number] MTDD
== END 2017-09-04 14:05 | disposition home or self-care (01) | DRG 483 ==
LOC: AA 06:02 → SSU 12:03
PROVIDERS: ADMIT Orthopaedic Surgery; ATTEND Orthopaedic Surgery
PROC: 0LS40ZZ Reposition Left Upper Arm Tendon, Open Approach (ICD-10-PCS; 2017-09-03)
PROC: 0RRK00Z Replacement of Left Shoulder Joint with Reverse Ball and Socket Synthetic Substitute, Open Approach (ICD-10-PCS; principal; 2017-09-03 07:30)
DX: M75.102 Unspecified rotator cuff tear or rupture of left shoulder, not specified as traumatic (principal); I48.0 Paroxysmal atrial fibrillation; E03.9 Hypothyroidism, unspecified; K27.9 Peptic ulcer, site unspecified, unspecified as acute or chronic, without hemorrhage or perforation; M19.90 Unspecified osteoarthritis, unspecified site; E78.5 Hyperlipidemia, unspecified; Z90.710 Acquired absence of both cervix and uterus; Z90.721 Acquired absence of ovaries, unilateral; Z88.8 Allergy status to other drugs, medicaments and biological substances; Z83.3 Family history of diabetes mellitus; Z79.01 Long term (current) use of anticoagulants
CPT/HCPCS: 36415; 80048; 80162; 83735; 84443; 85014; 85018; 85025; 85049; A9270-GY; J0690; J1100; J1650; J2250; J2405; J2704; J2795; J3010; J3490